=== PATIENT | female | born 1930 | race Caucasian/White ===

== ENCOUNTER 2016-10-04 10:48 | Day surgery (SDC) | payer MEDICARE, OTHER ==
[~2016-10-04] VITALS: Ht 170.2 cm
--- NOTE | 2016-10-05 08:16 | OR ---
ADMIT: 10/04/2016 RM/LOC: [facility] MR#: [id number] [address] [place], [place] [id number] Operative/Delivery Room Report SEX: F AGE: 86 : 1930 SURGERY DATE: 10/04/2016 SURGEON: Kristina Morales MD PREOPERATIVE DIAGNOSES: 1. Right knee pain. 2. Right knee arthritis. POSTOPERATIVE DIAGNOSES: 1. Right knee pain. 2. Right knee arthritis. PROCEDURE PERFORMED: Right knee joint injection with Synvisc. ANESTHESIA: Local without sedation. ESTIMATED BLOOD LOSS: Zero. COMPLICATIONS: None immediately evident. DESCRIPTION OF THE PROCEDURE: After the patient was seen in the preoperative area, vitals signs were taken. Prior to the procedure, the risks, benefits, and alternative therapies were discussed at length. Patient consent was obtained and updated. The patient was taken to the fluoroscopy suite and placed on the fluoroscopy table in a supine position. Pressure points were padded to comfort, monitors applied, and a timeout performed. C-arm was brought in to identify the right knee joint. Lidocaine plain 1%, approximately 1 mL was used to anesthetize the skin and underlying subcutaneous tissue. A 3.5-inch 22-gauge curved-tip spinal needle was advanced through the anesthetized skin and placed into the right knee joint space. Isovue-300 was injected into joint and showed good spread into the knee joint. After the correct placement was confirmed, a 6 mL solution consisting of Synvisc-One injected, recovered nicely. The patient tolerated the procedure well without any complications. The patient was then brought to the PACU where the patient recovered nicely. PLAN: The patient was examined after the conclusion and 20 minutes of the procedure the patient had 50% reduction of pain. Discharge instructions were given and followup scheduled. The patient was discharged home with a pile driver. Kristina Morales MD/ lsia JOB #: [id number] CC: Kristina Morales, Attending Physician ADMIT: 10/04/2016 RM/LOC: [facility] MR#: [id number] [address] [place] [address] Operative/Delivery Room Report SEX: F AGE: 86 : 1930 Juju Ricci, Family Physician
[2016-12-02] MEDS ORDERED: LASIX DPS20 MG PO (10:02)
[2016-12-02] MEDS ORDERED: ASPIRIN EC81 MG PO (10:02)
[2016-12-02] MEDS ORDERED: ARICEPT10 MG PO (10:03)
[2016-12-02] MEDS ORDERED: NAMENDA10 MG PO (10:03)
[2016-12-02] MEDS ORDERED: OYSCO 500+D TA1 EACH PO (10:03)
[2016-12-02] MEDS ORDERED: PRESERVISION L1 EACH PO (10:04)
[2016-12-02] MEDS ORDERED: PRILOSEC DPS20 MG PO (10:04)
[2016-12-02] MEDS ORDERED: SENNA S TABLET1 EACH PO (10:04)
[2016-12-02] MEDS ORDERED: ULTRAM DPS50 MG PO (10:04)
[2016-12-02] MEDS ORDERED: VITAMIN D31000 UNIT PO (10:05)
[2016-12-02] MEDS ORDERED: EFFEXOR XR75 MG PO (10:05)
[2016-12-02] MEDS ORDERED: OCEAN NASAL MIS45 ML NS (10:06)
[2016-12-02] MEDS ORDERED: KLOR-CON M2020 ME1 PO (10:06)
[2016-12-02] MEDS ORDERED: LIDEX E 0.05%60 GM TP (10:06)
[2016-12-02] MEDS ORDERED: TYLENOL DPS325 MG PO (10:06)
== END 2016-10-04 12:35 | disposition home or self-care (01) ==
LOC: SSS 10:48
PROC: 3E0U33Z Introduction of Anti-inflammatory into Joints, Percutaneous Approach (ICD-10-PCS; principal; 2016-10-04)
PROC: 3E0U3BZ Introduction of Anesthetic Agent into Joints, Percutaneous Approach (ICD-10-PCS; principal; 2016-10-04)
DX: M17.11 Unilateral primary osteoarthritis, right knee (principal); Z79.82 Long term (current) use of aspirin; Z79.899 Other long term (current) drug therapy